=== PATIENT | male | born 1965 | race Caucasian/White ===

== ENCOUNTER 2025-02-10 14:38 | Emergency (ER) | payer BC, SELFPAY ==
[2025-02-10] VITALS (51 sets, daily range): BP systolic 122–166; BP diastolic 73–113; PULSE 31–100; TEMP 36.2; O2SAT 90–99; BMI 25.0
--- NOTE | 2025-02-10 14:59 | ECG_ITS ---
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 Measurements Intervals [place] Rate: 65 P: -10975 MA: -16183 QRS: 78 QRSD: 86 T: -27 QT: 428 QTc: 439 Interpretive Statements 1210 Atrial fibrillation 2420 RSR (QR) in lead V1/V2, consistent with right ventricular conduction delay 3433 Septal myocardial infarction, probably old 36489 Twave abnormality, possible lateral ischemia or digitalis effect 10531 Twave abnormality, possible inferior ischemia or digitalis effect 9150 abnormal ECG No previous ECG available for comparison Electronically Signed On 02-10-2025 20:02:23 EDT by ANGELA MCLAUGHLIN M.D.
--- NOTE | 2025-02-10 14:59 | CT_ITS ---
The [address] [address] Patient Name: YEIMY DUMONT MRN: [id number] date: 1965 Sex: M Assigned Patient Location: ED.MAIN Current Patient Location: Accession/Order Number: [id number] Exam Date: 02/10/2025 15:59 Report Date: 02/10/2025 16:03 At the request of: PADMINI FINNEGAN MD Procedure: CT head/brain wo con CT BRAIN WITHOUT CONTRAST: CLINICAL HISTORY: Dizziness COMPARISON: None TECHNIQUE: Contiguous axial unenhanced images were obtained through the brain. This CT exam was performed using one or more following dose reduction techniques: Automated exposure control, adjustment of the mA and/or kV according to patient size, or use of iterative reconstruction technique. FINDINGS: There is no evidence of midline shift, intra or extra-axial fluid collection, hemorrhage or CT evidence of acute large vascular distribution stroke. Visualized intraorbital contents appear unremarkable. Intracranial vascular calcifications. Incidental note of increased attenuation involving the right vertebral artery and short segment of basilar artery may be related to beam hardening artifact within the posterior fossa. Visualized paranasal sinuses are clear. The surrounding soft tissues are normal. CT/CT head/brain wo con IMPRESSION: NO ACUTE INTRACRANIAL BLEED OR MIDLINE SHIFT. INCREASED ATTENUATION INVOLVING THE RIGHT VERTEBRAL ARTERY POSSIBLY RELATED TO ARTIFACT. PLEASE CORRELATE WITH VERTEBROBASILAR SYMPTOMS.. Impression dictated by: Esteban Roman M.D. 02/10/2025 4:03 PM Dictation Location: [place] [address] Electronically authenticated by: [id number] Y Date: 02/10/2025 16:03
--- NOTE | 2025-02-10 15:00 | ED.GENADUL1 ---
HPI HPI - General Adult General Chief complaint: Dizziness Stated complaint: DIZZINESS Time Seen by Provider: 02/10/25 14:40 Source: patient Mode of arrival: Wheelchair History of Present Illness HPI narrative: 59-year-old male presents for dizziness. This came on suddenly earlier this afternoon. He describes being off balance if he is standing. He has a minimal frontal headache. No trauma or fever or localized weakness. No complaints of vomiting or diarrhea or chest pain or shortness of breath. He has not seen a doctor in more than 10 years. Related Data Allergies Allergy/AdvReac Type Severity Reaction Status Date / Time No Known Drug Allergies Allergy Verified 02/10/25 14:52 Review of Systems ROS Narrative A ten point review of systems is negative except as noted above. PFSH PFSH Social History Little interest or pleasure in doing things: not at all Feeling down, depressed, or hopeless: not at all Exam Narrative Exam Narrative: Nurses note and vital signs reviewed and patient is not hypoxic. General: The patient appears well and in no apparent distress. Patient is resting comfortably on cart. Skin: Warm, dry, no pallor noted. There is no rash noted. Head: Normocephalic, atraumatic Eye: Normal conjunctiva, no drainage, EOMI. PERRL Ears, Nose, Mouth, and Throat: oral mucosa is moist. Nares patent. TMs are obscured by cerumen Cardiovascular: Irregular irregular, bradycardic Respiratory: Patient is in no distress, no accessory muscle use, lungs are clear to auscultation, no wheezing, rales or rhonchi Back: non-tender GI: Soft and nontender Musculoskeletal: The patient has no evidence of calf tenderness, no pitting edema, symmetrical pulses noted bilaterally Neurological: A&O x4, normal speech; upper and lower extremity strength intact and symmetric Psychiatric: Cooperative Constitutional Vital Signs, click to edit/add: Last Vital Signs Temp 97.2 F L 02/10/25 14:41 Pulse 55 L 02/10/25 17:00 Resp 21 H 02/10/25 17:00 BP 136/88 02/10/25 17:00 Pulse Ox 98 02/10/25 17:00 O2 Del Method Room Air 02/10/25 14:41 Course Vital Signs Vital signs: Vital Signs Temperature 97.2 F L 02/10/25 14:41 Pulse Rate 69 02/10/25 14:41 Respiratory Rate 18 02/10/25 14:41 Blood Pressure 132/78 02/10/25 14:41 Pulse Oximetry 98 02/10/25 14:41 Oxygen Delivery Method Room Air 02/10/25 14:41 Temperature 97.2 F L 02/10/25 14:41 Pulse Rate 55 L 02/10/25 17:00 Respiratory Rate 21 H 02/10/25 17:00 Blood Pressure 136/88 02/10/25 17:00 Pulse Oximetry 98 02/10/25 17:00 Oxygen Delivery Method Room Air 02/10/25 14:41 Medical Decision Making MDM Narrative Medical decision making narrative: The patient presented with dizziness. When we placed him on the monitor he was found to be in atrial fibrillation with a heart rate in the 50s. Occasionally however his heart rate would go down into the lower 30s. While laying down he did not seem to have symptoms with that heart rate. He does not have any chest pain and did not have any at any point. Troponin came back elevated at 1028. Case discussed with laboratory courier at [facility], Dr. Bowles, who accepts the patient in transfer. I also spoke to Dr. Rosado, hospitalist at [facility]. The patient is agreeable and stable for transfer Differential Diagnosis Differential Diagnosis: Vertigo, dysrhythmia, NSTEMI, CT, intracranial hemorrhage Lab Data Lab results reviewed: Yes I reviewed the patient's lab results Labs: Lab Results 02/10/25 Range/Units 15:11 WBC 7.0 (4.0-11.0) 10^3/uL RBC 5.04 (4.70-6.10) 10^6/uL Hgb 16.1 (14.0-18.0) g/dL Hct 46.5 (42.0-54.0) % MCV 92.3 (80.0-94.0) fL MCH 31.9 (25.9-34.0) pg MCHC 34.6 (29.9-35.2) g/dL RDW 12.5 (11.0-15.0) % Plt Count 246 (150-450) 10^3/uL MPV 10.6 (9.5-13.5) fL Neut % (Auto) 71.8 (43.0-75.0) % Lymph % (Auto) 19.9 L (20.5-60.0) % [place] % (Auto) 6.6 (1.7-12.0) % Eos % (Auto) 1.3 (0.9-7.0) % Baso % (Auto) 0.4 (0.2-2.0) % Neut # (Auto) 5.0 (1.4-6.5) 10^3/uL Lymph # (Auto) 1.4 (1.2-3.8) 10^3/uL [place] # (Auto) 0.5 (0.3-0.8) 10^3/uL Eos # (Auto) 0.1 (0.0-0.7) 10^3/uL Baso # (Auto) 0.0 (0.0-0.1) 10^3/uL Abs Immat Gran (auto) 0.00 (0.00-0.03) 10^3/uL Imm/Tot Granulo (auto) 0.0 (0.0-0.5) % PT 11.0 (9.0-11.6) sec INR 1.04 APTT 26.7 (22.3-36.2) sec Sodium 141 (136-145) mmol/L Potassium 4.1 (3.5-5.1) mmol/L Chloride 105 (98-107) mmol/L Carbon Dioxide 28.1 (21.0-32.0) mmol/L Anion Gap 12.0 BUN 21.0 H (7.0-18.0) mg/dL Creatinine 1.03 (0.70-1.30) mg/dL Est GFR ( Amer) >60 (>=60 mL/min/1.73m^2) Est GFR (Non-Af Amer) >60 (>=60 mL/min/1.73m^2) BUN/Creatinine Ratio 20.4 Glucose 121 H (74-106) mg/dL Calcium 9.0 (8.5-10.1) mg/dL Troponin I High Sens 1028.6 H* (4.0-76.1) pg/mL Imaging Data CT scan - head: My impression: Chest x-ray on my interpretation shows no acute findings Radiologist's impression: ITS Impressions Head CT 02/10/25 14:59 IMPRESSION: NO ACUTE INTRACRANIAL BLEED OR MIDLINE SHIFT. INCREASED ATTENUATION INVOLVING THE RIGHT VERTEBRAL ARTERY POSSIBLY RELATED TO ARTIFACT. PLEASE CORRELATE WITH VERTEBROBASILAR SYMPTOMS.. Impression dictated by: Esteban Roman M.D. 02/10/2025 4:03 PM Dictation Location: [place] [address] Electronically authenticated by: [id number] Y Date: 02/10/2025 16:03 Chest X-Ray 02/10/25 16:04 IMPRESSION: No acute cardiopulmonary pathology. Impression dictated by: Adonis Reza M.D. 02/10/2025 5:00 PM Dictation Location: [place] [address] Electronically authenticated by: [id number] Y Date: 02/10/2025 17:00 ECG Data Attestation: I personally reviewed and interpreted this ECG as follows: (EKG on my interpretation shows atrial fibrillation with a rate in the mid 60s) Discharge Plan Discharge Chief Complaint: Dizziness Clinical Impression: Non-ST elevation CT (NSTEMI) Patient Disposition: [facility] Time of Disposition Decision: 16:08 Discharge Location: [facility] Condition: Fair Mode of Transportation: EMS
[2025-02-10] MEDS: MECLIZINE HCL 12.5 MG TABLET 25 MG PO (15:08)
--- OUTSIDE RECORDS SUMMARY | 2025-02-10 15:14 | XMS_ITS | Clinical Summary ---
Author Organization [facility] Healthcare Address [address] [place] [address] Care Team Providers Care Denture Processor Name Role Phone CristyJairo perezony Bebe DO Unavailable Allergies No known active allergies Medications ibuprofen 800 MG tablet Take 800 mg by mouth every 8 (eight) hours if needed. 3 Active methylPREDNISol one (Medrol Dospak) 4 MG tabletsIndicati ons:Strain of left ankle, initial encounter Follow schedule on package instructions 21 tablet 3 Active Active Problems No known active problems Social History Tobacco Use Types Packs/Day Years Used Date Smoking Tobacco: Never Smokeless Tobacco: Never Tobacco Cessation:Counseling Given: Not Answered Alcohol Use Standard Drinks/Week Comments Yes 0 (1 standard drink = 0.6 oz pur e alcohol) Sex and Gender Information Value Date Recorded Sex Assigned at Not on file Legal Sex Male 7:21 PM EDT Gender Identity Not on file Sexual Orientation Not on file Last Filed Vital Signs Vital Sign Reading Time Taken Comments Blood Pressure 118/78 04/26/2023 6:54 PM EDT Pulse 109 04/26/2023 6:54 PM EDT Temperature 36.6 C (97.8 F) 04/26/2023 6:54 PM EDT Respiratory Rate 18 04/26/2023 6:54 PM EDT Oxygen Saturation 98% 04/26/2023 6:54 PM EDT Inhaled Oxygen Concentration - - Weight 84.8 kg (187 lb) 04/26/2023 6:54 PM EDT Height - - Body Mass Index - - Plan of Treatment Health Maintenance Due Date Last Done Comments CT Colonography 1965 Colonoscopy 1965 Colorectal Cancer Screening 1965 FIT-DNA 1965 FIT 1965 FOBT 1965 Sigmoidoscopy 1965 Influenza Vaccine (Season Ended) 2025 05/25/20 19 Insurance [facility] Care Teams Denture Processor Relationship Specialty Start Date End Date Gerhard Terrazas DO [address] [facility] [address] [place] [address] PCP - Alex Commercial 11/17/24
--- OUTSIDE RECORDS SUMMARY | 2025-02-10 15:14 | XMS_ITS | Clinical Summary ---
Author Organization [facility] Address [address] [place] [address] Care Team Providers Care Manager Of Pmo Name Role Phone Jairo Hassan MD Primary Care Provider Allergies No known active allergies Medications No known medications Active Problems No known active problems Immunizations Immunization Administration Dates Next Due INFLUENZA IIV4 6MO OR > FLUARIX/FLUZONE/AFLURIA 20938 05/25/2019 Social History Tobacco Use Types Packs/Day Years Used Date Smoking Tobacco: Never Smokeless Tobacco: Never Alcohol Use Standard Drinks/Week Comments Not Currently 0 (1 standard drink = 0.6 oz pure alcohol) Pt has been sober for 2 years AUDIT-C Answer Date Recorded Frequency of Alcohol Consumption Never 05/25/2019 Average Number of Drinks Not on file 019 Frequency of Binge Drinking Not on file 02/2019 Sex and Gender Information Value Date Recorded Sex Assigned at Not on file Legal Sex Male 9:19 AM EDT Gender Identity Male 05/25/2019 11:09 AM EDT Sexual Orientation Straight 05/25/2019 11 :09 AM EDT Last Filed Vital Signs Vital Sign Reading Time Taken Comments Blood Pressure 120/80 05/25/2019 11:15 AM EDT Pulse 88 05/25/2019 11:15 AM EDT Temperature 37 C (98.6 F) 05/25/2019 11:15 AM EDT Respiratory Rate 16 05/25/2019 11:15 AM EDT Oxygen Saturation - - Inhaled Oxygen Concentration - - Weight 90.3 kg (199 lb) 05/25/2019 11:15 AM EDT Height 188 cm (6' 2 ) 05/25/2019 11:15 AM EDT Body Mass Index 25.55 05/25/2019 11:15 AM EDT Plan of Treatment Health Maintenance Due Date Last Done Comments CT Colonography 1965 Colonoscopy 1964 Colorectal Cancer Screening/Monitoring 1965 Fecal DNA 1964 Fecal occult blood test (FOBT,FIT) 1964 PSA Level 1964 Tetanus: Every 10yrs 1964 Wellness Visit 1967 Depression Screening/Follow-Up (PHQ-2/9) 1976 HIV Screening 1979 Hepatitis C Screening 1982 Pneumococcal Vaccine: Age 50+ (1 of 1 - PCV) 4 Zoster Vaccines (1 of 2) 2014 COVID-19 Vaccine (1 - season) 2024 Influenza Vaccine (Season Ended) 2025 05/25/20 Respiratory Syncytial Virus Immunization: Risk, 60-74 Risk, or 75+ (1 - 1-dose 75+ series) 2039 Insurance [facility] MEDICAID [facility] PLAN MEDICAID [place] Care Teams Manager Of Pmo Relationship Specialty Start Date End Date Jairo Hassan MD [address] [place] [address] PCP - General Family Medicine 09/25/23
[2025-02-10 15:22] LABS: Basophils Percent Auto 0.4 % (0.2-2.0); Eosinophils Absolute Auto 0.1 10^3/uL (0.0-0.7); Eosinophils Percent Auto 1.3 % (0.9-7.0); Hematocrit 46.5 % (42.0-54.0); Hemoglobin 16.1 g/dL (14.0-18.0); Lymphocytes Absolute Auto 1.4 10^3/uL (1.2-3.8); Lymphocytes Percent Auto 19.9 % (20.5-60.0); Mean Corpuscular HGB Conc 34.6 g/dL (29.9-35.2); Mean Corpuscular Hemoglobin 31.9 pg (25.9-34.0); Mean Corpuscular Volume 92.3 fL (80.0-94.0); Mean Platelet Volume 10.6 fL (9.5-13.5); Monocytes Absolute Auto 0.5 10^3/uL (0.3-0.8); Monocytes Percent Auto 6.6 % (1.7-12.0); Neutrophils Percent Auto 71.8 % (43.0-75.0); Platelet Count 246 10^3/uL (150-450); Red Blood Count 5.04 10^6/uL (4.70-6.10); Red Cell Distribution Width 12.5 % (11.0-15.0)
[2025-02-10 15:30] LABS: BUN Creatinine Ratio 20.4; Carbon Dioxide 28.1 mmol/L (21.0-32.0); Chloride 105 mmol/L (98-107); Estimated GFR (African America >60 (>=60 mL/min/1.73m^2); Estimated GFR (Non-African Ame >60 (>=60 mL/min/1.73m^2); Glucose 121 mg/dL (74-106); Potassium 4.1 mmol/L (3.5-5.1); Sodium 141 mmol/L (136-145)
[2025-02-10 16:04] LABS: Troponin I High Sensitivity 1028.6 pg/mL (4.0-76.1)
--- NOTE | 2025-02-10 16:04 | XR_ITS ---
The [place] [id number] Patient Name: YEIMY DUMONT MRN: [id number] date: 1965 Sex: M Assigned Patient Location: ED.MAIN Current Patient Location: ED.MAIN Accession/Order Number: [id number] Exam Date: 02/10/2025 16:59 Report Date: 02/10/2025 17:00 At the request of: PADMINI FINNEGAN MD Procedure: XR chest 1V XR chest 1V 02/10/2025 4:21 PM SIGNS AND SYMPTOMS: Shortness of breath PROTOCOL: Frontal radiograph of the chest COMPARISON: None FINDINGS: The trachea is midline. The heart and mediastinal structures are within normal limits. The lung parenchyma is clear. The bony thorax is intact. XR/XR chest 1V IMPRESSION: No acute cardiopulmonary pathology. Impression dictated by: Adonis Reza M.D. 02/10/2025 5:00 PM Dictation Location: [place] [address] Electronically authenticated by: [id number] Y Date: 02/10/2025 17:00
[2025-02-10] MEDS: ASPIRIN 81 MG TAB.CHEW 324 MG PO (16:20)
[2025-02-10] MEDS: HEPARIN SODIUM (PORCINE) 5,000 UNIT/ML VIAL 4000 UNIT IV (16:21)
[2025-02-10] MEDS: HEPARIN SODIUM,PORCINE/D5W 25,000 UNIT/500 ML IV.SOLN 20 UNIT IV (16:21)
[2025-02-10 16:26] LABS: INR 1.04; Partial Thromboplastin Time 26.7 sec (22.3-36.2)
[2025-02-10 17:52] LABS: Troponin I High Sensitivity 950.1 pg/mL (4.0-76.1)
== END 2025-02-10 21:15 | disposition short-term general hospital (02) ==
PROVIDERS: Emergency Provider Emergency Medicine
DX: I21.4 Non-ST elevation (NSTEMI) myocardial infarction (principal); I48.91 Unspecified atrial fibrillation
CPT/HCPCS: 36415; 70450; 71045; 80048; 84484; 85025; 85610; 85730; 93005; 96365; 96366; 96376; 99285; J1644